=== PATIENT | female | born 1950 | race American Indian/Alaskan Native ===

== ENCOUNTER 2024-12-13 18:38 | Emergency (ER) | payer OTHER ==
[~2024-12-13] VITALS: Ht 160 cm; Wt 73.5 kg
[2024-12-13 18:45] VITALS: O2SAT 97
[2024-12-13] MEDS ORDERED: NORVASC2.5 M1 PO (18:49)
[2024-12-13] MEDS ORDERED: COZAAR100 MG PO (18:49)
[2024-12-13] MEDS ORDERED: TOPROL XL50 M1 PO (18:49)
[2024-12-13] MEDS ORDERED: FOSAMAX PLUS D1 EACH PO (18:51)
[2024-12-13] MEDS ORDERED: CLONIDINE HCL 0.1 MG TABLET PO STA (18:57)
[2024-12-13] MEDS ORDERED: CLONIDINE HCL 0.1 MG TABLET PO ONE (20:46)
[2024-12-13 21:07] LABS: BASO % 0.6 % (0.1-1.2); EOS # 0.07 (0.04-0.54); EOS % 0.8 % (0.7-7.0); LYMPH # 2.96 (1.18-3.74); LYMPH % 35.1 % (19.3-53.1); MEAN PLATELET VOLUME 10.60 fl (9.4-12.4); MONO # 0.39 (0.24-0.82); MONO % 4.6 % (4.7-12.5); NEUT # 4.95 (1.56-6.13); NEUT % 58.7 % (34.0-71.1); RED CELL DISTRIBUTION WIDTH 13.6 % (11.6-14.4)
[2024-12-13 21:29] LABS: INR 1.04
[2024-12-13 21:44] LABS: ALT/SGPT 21.0 U/L (12-78); AST/SGOT 21.0 U/L (15-37); BILIRUBIN TOTAL 0.33 mg/dL (0.3-1.2); BUN CREA RATIO 23.0 (7.0-25.0); CREATININE SERUM 0.48 mg/dL (0.55-1.02); GFR 127.49; GLOBULINA 3.3 G/DL (2.4-3.5); GLUCOSE FASTING 116.0 mg/dL (65-100); OSMOLALITY SERUM 283.0 MOSM/KG (275-295)
[2024-12-13 21:48] LABS: URINE APPEARANCE Clear; URINE BILIRRUBIN Negative (NEGATIVE); URINE COLOR Yellow; URINE GLUCOSE Negative (NEGATIVE); URINE KETONE Negative (NEGATIVE); URINE LEUKOCYTE Trace; URINE NITRATE Negative; URINE PROTEIN Negative (NEGATIVE); URINE UROBILINOGEN 0.2 E.U./dl
[2024-12-13 21:52] LABS: URINE BACTERIA 34.8 uL (0.0-1933); URINE EPITHELIAL CELLS 2.1 uL (0.0-38.8); URINE RBC 18.3 uL (0.0-20.8); URINE WBC 12.7 uL (0.0-23.2)
[2024-12-13 21:54] LABS: URINE BLOOD Traces; URINE CAST 0.00 uL (0.0-1.40)
[2024-12-13 22:45] VITALS: BP 110/70
[2024-12-14] MEDS ORDERED: CIPRO500 MG PO (01:51)
== END 2024-12-14 02:23 | disposition home or self-care (01) ==
LOC: ER 18:38
PROVIDERS: Physician Assistant Medical
DX: R00.2 Palpitations (principal); Z91.013 Allergy to seafood; N39.0 Urinary tract infection, site not specified

== ENCOUNTER 2024-12-16 18:34 | Emergency (ER) | payer OTHER ==
[~2024-12-16] VITALS: Ht 167.6 cm; Wt 73.5 kg
[~2024-12-16 18:34] MED LIST: CIPRO500 MG PO; COZAAR100 MG PO; FOSAMAX PLUS D1 EACH PO; NORVASC2.5 M1 PO; TOPROL XL50 M1 PO
[2024-12-16] MEDS ORDERED: ARICEPT10 MG PO (18:38)
[2024-12-16] MEDS ORDERED: 0.9 % SODIUM CHLORIDE 1,000 ML IV SCH (19:15)
[2024-12-16] MEDS ORDERED: ACETAMINOPHEN 500 MG GEL..CAP PO ONE ×2 (19:15→19:34)
[2024-12-16] MEDS ORDERED: FAMOTIDINE/PF 20 MG in 0.9 % SODIUM CHLORIDE 8 ML IV PUSH ONE (19:15)
[2024-12-16] MEDS ORDERED: FAMOTIDINE/PF 20 MG/2 ML VIAL ONE (19:34)
[2024-12-16 20:11] LABS: BASO % 0.6 % (0.1-1.2); EOS # 0.11 (0.04-0.54); EOS % 1.3 % (0.7-7.0); LYMPH # 3.09 (1.18-3.74); LYMPH % 36.5 % (19.3-53.1); MEAN PLATELET VOLUME 11.40 fl (9.4-12.4); MONO # 0.46 (0.24-0.82); MONO % 5.4 % (4.7-12.5); NEUT # 4.73 (1.56-6.13); NEUT % 56.0 % (34.0-71.1); RED CELL DISTRIBUTION WIDTH 13.4 % (11.6-14.4)
[2024-12-16 20:33] LABS: INR 1.1
[2024-12-16 20:35] LABS: URINE APPEARANCE Clear; URINE BILIRRUBIN Negative (NEGATIVE); URINE BLOOD Negative; URINE COLOR Yellow; URINE GLUCOSE Negative (NEGATIVE); URINE KETONE Negative (NEGATIVE); URINE LEUKOCYTE Small; URINE NITRATE Negative; URINE PROTEIN Negative (NEGATIVE); URINE UROBILINOGEN 0.2 E.U./dl
[2024-12-16 20:36] LABS: URINE BACTERIA 20.3 uL (0.0-1933); URINE EPITHELIAL CELLS 8.1 uL (0.0-38.8); URINE RBC 13.9 uL (0.0-20.8); URINE WBC 23.6 uL (0.0-23.2)
[2024-12-16 20:43] LABS: ALT/SGPT 22.0 U/L (12-78); AST/SGOT 19.0 U/L (15-37); BILIRUBIN TOTAL 0.35 mg/dL (0.3-1.2); BUN CREA RATIO 30.0 (7.0-25.0); CREATININE SERUM 0.43 mg/dL (0.55-1.02); GFR 144.34; GLOBULINA 3.9 G/DL (2.4-3.5); GLUCOSE FASTING 97.0 mg/dL (65-100); OSMOLALITY SERUM 287.0 MOSM/KG (275-295)
[2024-12-16 20:50] LABS: URINE CAST 0.00 uL (0.0-1.40)
[2024-12-16] MEDS ORDERED: ATORVASTATIN CALCIUM 40 MG TABLET PO ONE (22:15)
[2024-12-16] MEDS ORDERED: ASPIRIN 81 MG TAB.CHEW PO ONE (22:15)
[2024-12-16] MEDS ORDERED: CHILDREN'S ASPI81 MG PO (22:22)
[2024-12-16] MEDS ORDERED: NORVASC5 MG PO (22:22)
[2024-12-16] MEDS ORDERED: LIPITOR40 MG PO (22:22)
== END 2024-12-16 22:40 | disposition home or self-care (01) ==
LOC: ER 18:34
PROVIDERS: General Practice
DX: R51.9 Headache, unspecified (principal); G45.8 Other transient cerebral ischemic attacks and related syndromes; I10 Essential (primary) hypertension; M19.90 Unspecified osteoarthritis, unspecified site; Z91.013 Allergy to seafood